=== PATIENT | male | born 1985 | race Caucasian/White ===

== ENCOUNTER 2018-04-18 01:58 | Emergency (ER) | payer OTHER ==
[~2018-04-18] VITALS: Ht 185.4 cm; Wt 127.0 kg
[2018-04-18 02:01] VITALS: TEMP 36.7; Ht 185.4 cm; Wt 127.0 kg
[2018-04-18] MEDS ORDERED: ONDANSETRON INJ 2 MG/ML 2 ML VIAL IV STA (02:15)
[2018-04-18] MEDS ORDERED: KETOROLAC TROMETHAMINE 30 MG/ML VIAL IV STA (02:15)
[2018-04-18] MEDS ORDERED: SODIUM CHLORIDE 0.9% 1000ML 1,000 ML IV STA (02:15)
[2018-04-18 02:22] VITALS: O2SAT 100
[2018-04-18 02:29] LABS: BASO % 0.5 %; BASO ABS # 0.03 K/uL (0-0.2); EOS % 4.7 %; EOS ABS # 0.31 K/uL (0-0.5); HEMATOCRIT 36.7 % (42-52); HEMOGLOBIN 12.5 g/dL (14.0-18.0); IG# 0.01 K/uL (0.00-0.02); LYMPH % 48.6 %; LYMPH ABS # 3.19 K/uL (1.2-3.4); MEAN CELL VOLUME 91.8 fL (80-100); MEAN CORPUSCULAR HEMOGLOBIN 31.3 pg (25-34); MEAN CORPUSCULAR HGB CONC 34.1 g/dl (32-36); MEAN PLATELET VOLUME 9.5 fL (7.4-10.4); MONO % 6.5 %; MONO ABS # 0.43 K/uL (0.11-0.59); NEUT % 39.5 %; PLATELET COUNT 222 K/uL (130-400); RED CELL DISTRIBUTION WIDTH CV 13.7 % (11.5-14.5); RED CELL DISTRIBUTION WIDTH SD 46.1 fL (36.4-46.3); WHITE BLOOD COUNT 6.57 K/uL (4.8-10.8)
[2018-04-18] MEDS ORDERED: OPTIRAY 320 IV PRN (02:30)
[2018-04-18 02:51] LABS: ALBUMIN 3.9 gm/dl (3.4-5.0); ALKALINE PHOSPHATASE 69 U/L (45-117); ALT/SGPT 25 U/L (12-78); AST/SGOT 23 U/L (15-37); BLOOD UREA NITROGEN 10 mg/dl (7-18); CALCIUM 8.1 mg/dl (8.5-10.1); CARBON DIOXIDE 27 mmol/L (21-32); CREATININE 0.98 mg/dl (0.60-1.40); GLUCOSE 98 mg/dl (70-99); LIPASE 152 U/L (73-393); POTASSIUM 3.7 mmol/L (3.5-5.1); SODIUM 141 mmol/L (136-145); TOTAL PROTEIN 7.5 gm/dl (6.4-8.2)
--- NOTE | 2018-04-18 04:06 | EMERGENCY ROOM VISIT NOTE ---
History First contact with patient: 02:07 Chief Complaint: ABDOMINAL PAIN Stated Complaint: ABD PAIN History of Present Illness The patient is a 33 year old male who presents to the Emergency Room with complaints of severe sudden onset of right lower quadrant pain with nausea and vomiting for the past hour. Patient states throughout the day he thought his abdomen felt uncomfortable. He was able to eat and drink though. Patient states he was on lock down today. He did not leave his cell. Patient described pain as severe, 9 out of 10. Nothing makes it better or worse. It does not radiate. Patient denies chest pain, dyspnea, injury to the area, back pain, urinary symptoms, testicular pain, penile pain, diarrhea or any other medical complaints. He states he takes no medicines and has no active medical problems. Review of Systems An 10 system review of systems was completed with positives and pertinent negatives listed in the HPI. Past Medical/Surgical History None Social History Smoking Status: Current Every Day Smoker Marital Status: single Occupation Status: other (Prisoner) Current/Historical Medications No Active Prescriptions or Reported Meds Physical Exam Vital Signs Date Time Temp Pulse Resp B/P (MAP) Pulse Ox O2 Delivery O2 Flow Rate FiO2 04/18/18 03:48 58 19 156/88 96 Room Air 04/18/18 03:43 65 14 04/18/18 03:38 60 21 04/18/18 03:33 63 15 04/18/18 03:28 62 15 04/18/18 03:23 71 15 04/18/18 03:23 65 04/18/18 02:22 100 Room Air 04/18/18 02:21 153/88 04/18/18 02:01 36.7 54 18 153/88 98 Room Air Physical Exam VITALS: Vitals are noted on the nurse's note and reviewed by myself. Vital signs stable. GENERAL: White male with multiple tattoos in shackles, in no acute distress, nondiaphoretic, well-developed well-nourished. SKIN: The skin was without rashes, erythema, edema, or bruising. There is no tenting of the skin. Capillary reflex less than 2 seconds. HEAD: Normocephalic atraumatic. EARS: External auditory canals clear, tympanic membranes pearly olmos without erythema or effusion bilaterally. EYES: Pupils equal round and reactive to light and accommodation. Conjunctivae without injection, sclerae without icterus. Extraocular movements intact. NOSE: Patent, turbinates without inflammation or discharge. MOUTH: Mucous membranes moist. Pharynx without erythema or exudate. Uvula midline. Airway patent. Tongue does not deviate. NECK: Supple without nuchal rigidity. No lymphadenopathy. No thyromegaly. Cervical spine is nontender. No JVD. HEART: Regular rate and rhythm without murmurs gallops or rubs. LUNGS: Clear to auscultation bilaterally without wheezes, rales or rhonchi. No retractions or accessory muscle use. ABDOMEN: Positive bowel sounds x 4. Normal tympanic percussion. Soft, tender to palpation right lower quadrant, without masses or organomegaly. Hummel sign negative. No guarding or rebound tenderness. No CVA tenderness MUSCULOSKELETAL: No muscle atrophy, erythema, or edema noted. NEURO: Patient was alert and oriented to person place and time. Normal sensation to light and sharp touch. No focal neurological deficits. Medical Decision & Procedures Laboratory Results 04/18/18 02:20 Red Blood Count 4.00, Mean Corpuscular Volume 91.8, Mean Corpuscular Hemoglobin 31.3, Mean Corpuscular Hemoglobin Concent 34.1, Mean Platelet Volume 9.5, Neutrophils (%) (Auto) 39.5, Lymphocytes (%) (Auto) 48.6, Monocytes (%) (Auto) 6.5, Eosinophils (%) (Auto) 4.7, Basophils (%) (Auto) 0.5, Neutrophils # (Auto) 2.60, Lymphocytes # (Auto) 3.19, Monocytes # (Auto) 0.43, Eosinophils # (Auto) 0.31, Basophils # (Auto) 0.03 04/18/18 02:20 Test 04/18/18 02:17 04/18/18 02:20 Urine Color YELLOW Urine Appearance CLEAR (CLEAR) Urine pH 6.0 (4.5-7.5) Urine Specific [place] 1.024 (1.000-1.030) Urine Protein 1+ (NEG) Urine Glucose (UA) NEG (NEG) Urine Ketones NEG (NEG) Urine Occult Blood 3+ (NEG) Urine Nitrite NEG (NEG) Urine Bilirubin NEG (NEG) Urine Urobilinogen NEG (NEG) Urine Leukocyte Esterase NEG (NEG) Urine WBC (Auto) 1-5 /hpf (0-5) Urine RBC (Auto) >30 /hpf (0-4) Urine Hyaline Casts (Auto) 0 /lpf (0-5) Urine Epithelial Cells (Auto) 5-10 /lpf (0-5) Urine Bacteria (Auto) NEG (NEG) White Blood Count 6.57 K/uL (4.8-10.8) Red Blood Count 4.00 M/uL (4.7-6.1) Hemoglobin 12.5 g/dL (14.0-18.0) Hematocrit 36.7 % (42-52) Mean Corpuscular Volume 91.8 fL (80-100) Mean Corpuscular Hemoglobin 31.3 pg (25-34) Mean Corpuscular Hemoglobin Concent 34.1 g/dl (32-36) Platelet Count 222 K/uL (130-400) Mean Platelet Volume 9.5 fL (7.4-10.4) Neutrophils (%) (Auto) 39.5 % Lymphocytes (%) (Auto) 48.6 % Monocytes (%) (Auto) 6.5 % Eosinophils (%) (Auto) 4.7 % Basophils (%) (Auto) 0.5 % Neutrophils # (Auto) 2.60 K/uL (1.4-6.5) Lymphocytes # (Auto) 3.19 K/uL (1.2-3.4) Monocytes # (Auto) 0.43 K/uL (0.11-0.59) Eosinophils # (Auto) 0.31 K/uL (0-0.5) Basophils # (Auto) 0.03 K/uL (0-0.2) RDW Standard Deviation 46.1 fL (36.4-46.3) RDW Coefficient of Variation 13.7 % (11.5-14.5) Immature Granulocyte % (Auto) 0.2 % Immature Granulocyte # (Auto) 0.01 K/uL (0.00-0.02) Anion Gap 4.0 mmol/L (3-11) Est Creatinine Clear Calc Drug Dose 149.7 ml/min Estimated GFR () 116.9 Estimated GFR (Non- 100.9 BUN/Creatinine Ratio 10.2 (10-20) Calcium Level 8.1 mg/dl (8.5-10.1) Total Bilirubin 0.2 mg/dl (0.2-1) Direct Bilirubin < 0.1 mg/dl (0-0.2) Aspartate Amino Transf (AST/SGOT) 23 U/L (15-37) Alanine Aminotransferase (ALT/SGPT) 25 U/L (12-78) Alkaline Phosphatase 69 U/L (45-117) Total Protein 7.5 gm/dl (6.4-8.2) Albumin 3.9 gm/dl (3.4-5.0) Lipase 152 U/L (73-393) Medications Administered Medications (Trade) Dose Ordered Sig/Woody Route Start Time Stop Time Status Last Admin Dose Admin Ketorolac Tromethamine (Toradol Inj) 10 mg NOW STAT IV 04/18/18 02:15 04/18/18 02:17 DC 04/18/18 02:26 10 MG Ondansetron HCl (Zofran Inj) 4 mg NOW STAT IV 04/18/18 02:15 04/18/18 02:17 DC 04/18/18 02:27 4 MG Sodium Chloride 1,000 ml @ 999 mls/hr Q1H1M STAT IV 04/18/18 02:15 04/18/18 03:15 DC 04/18/18 02:28 999 MLS/HR ED Course Prior records/ancillary studies reviewed. Triage Nursing notes reviewed. Additional history obtained from correction officers The patient's history was concerning for abdominal pain. Differential diagnosis: Etiologies such as appendicitis, diverticulitis, PUD, biliary pathology, UTI, pancreatitis, obstruction, mesenteric ischemia, aortic pathology, infections, inflammatory bowel disease, renal colic, as well as others were entertained. Physical examination findings: As above. ER treatment provided: Toradol, Zofran, IV fluids On reassessment the patient felt better. Diagnostics interpreted by me: The labs revealed no worrisome electrolyte abnormality Urine hematuria. No signs of infection. Mild anemia Imaging studies: CT ABDOMEN & PELVIS With Contrast: A 2 mm stone in the bladder near the right UVJ with mild right hydronephrosis. Normal appendix. Mild fluid in small bowel loops, nonspecific, enteritis not excluded in the appropriate clinical setting. No evidence of bowel obstruction. Mild rectosigmoid wall thickening likely related to underdistention. Scattered colonic diverticula. Contracted gallbladder. Small fat-containing umbilical and inguinal hernias. Small nonspecific mesenteric and retroperitoneal lymph nodes. Radiologist: Renata Lacy M.D. Study ready at 03:18 and initial results transmitted at 03:59 Consultation: A consultation was placed with the [facility] nurse. She was informed of the above findings. Exam and history seem consistent with right ureteral colic. Patient was advised to strain his urine. Patient had no signs of UTI. Patient did not have acute abdomen on exam. He is well-appearing. Repeat abdominal exam was benign. Patient was afebrile and nontoxic. No leukocytosis. Patient was advised to take medications as directed rest, stay well-hydrated follow-up nursing home doctor tomorrow here in the ER sooner for severe pain, fevers, vomiting, worsening signs or symptoms or as needed. By the evaluation outlined above emergent etiologies such as appendicitis, diverticulitis, PUD, biliary pathology, UTI, pancreatitis, obstruction, mesenteric ischemia, aortic pathology, infections, inflammatory bowel disease, as well as others were deemed relatively unlikely. The pt informed about the findings as listed above. All questions were answered and pleased with the treatment. Return instructions were outlined and the patient was discharged in stable condition. Referral: The patient was referred back to their primary care physician for follow-up later this morning for a recheck of the current condition. Case reviewed with my attending The chart was completed utilizing [employer] Speech voice recognition software. Grammatical errors, random word insertions, pronoun errors, and incomplete sentences are an occassional consequence of this system due to software limitations, ambient noise, and hardware issues. Any formal questions or concerns about the content, text, or information contained within the body of this dictation should be directly addressed to the physician research program assistant for clarification. Medical Decision As above Medication Reconcilliation Current Medication List: was personally reviewed by ut Blood Pressure Screening Patient's blood pressure: Normal blood pressure Impression Primary Impression: Renal colic on right side Additional Impression: Anemia Departure Information Dispostion Home / Self-Care Condition GOOD Prescriptions No Active Prescriptions or Reported Meds Referrals Cherri DEUTSCH (PCP) Patient Instructions [facility] Additional Instructions Ibuprofen(Motrin, Advil) may be used for fever or pain. Use 600mg every six hours as needed. Take with food. Avoid using more than 2400mg in a 24 hour period. Do not use 2400mg per day for more than three consecutive days without physician direction. Prolonged inappropriate use can lead to stomach upset or ulcers. This medication can be taken if you need to drive, work, or perform activities which may be dangerous when taking narcotic pain medication. (AND/OR) Acetaminophen(Tylenol) may be used for fever or pain. Use 1000mg every six hours as needed. Avoid using more than 3000mg in a 24 hour period. This medication can be taken if you need to drive, work, or perform activities which may be dangerous when taking narcotic pain medication. Strain your urine and collect all the stones or debris for the urologists. Rest and avoid strenuous activity until your stone passes and symptoms resolve. Drink plenty of fluids. Continue current medications. Return to the ER for worsening abdominal or back pain, vomiting, fevers, passing out, or as needed. Follow up with nursing home doctor in the morning and urology in 2-3 days, call for an appointment. Problem Qualifiers
[2018-04-18 04:12] VITALS: BP 156/88; PULSE 58; O2SAT 96
--- NOTE | 2018-04-18 07:46 | DIAGNOSTIC IMAGING REPORT ---
ABDOMEN AND PELVIS CT WITH IV CONTRAST CT DOSE: 988.50 mGy.cm HISTORY: right side pain, ? appy/stone/infx TECHNIQUE: Multiaxial CT images of the abdomen and pelvis were performed following the use of intravenous contrast. A dose lowering technique was utilized adhering to the principles of ALARA. COMPARISON STUDY: None. FINDINGS: The lung bases are clear. No pneumoperitoneum. No pneumatosis. No suspicious lytic or blastic osseous lesions. The liver, gallbladder, adrenal glands, pancreas, and spleen are unremarkable. A 1.3 cm cyst within the lower pole of the left kidney. No retroperitoneal lymphadenopathy. Small fat-containing umbilical hernia. Mild right hydroureteronephrosis secondary to an obstructing 3 mm stone either within or just beyond the right ureterovesical junction. This is best in image 429. No bladder wall thickening. No bowel wall thickening or obstruction. Normal appendix. Colonic diverticulosis. IMPRESSION: 1. Mild right hydroureteronephrosis. This is secondary to a 3 mm stone which is either within or just beyond the right ureterovesical junction. 2. No bowel wall thickening or obstruction. 3. Colonic diverticulosis. Electronically signed by: Jean Carlos Black M.D. 04/18/2018 7:45 AM Dictated Date/Time: 04/18/2018 7:40 AM
--- NOTE | 2018-04-23 10:13 | EDITING REQUIRED CODING QUERY ---
CODING QUERY To promote full compliance with coding requirements relating to patient care, provider participation is requested in all cases of front end web designer uncertainty. Please assist us with the question(s) below: Coding Question(s): Patient was advised to "strain your urine and collect all the stones or debris for the urologist". Please document if the patient has a diagnosis of a renal calculus and location of calculus if present. Physician's Response(s): Renal Calculus on the right side Thank you Shweta Magana Principal Diagnosis: "_that condition established after study, to be chiefly responsible for occasioning the admission of the patient to the hospital for care." Co-Existing Principal Diagnosis: "_when two or more diagnoses equally meet the criteria for principal diagnosis as determined by the circumstances of admission, diagnostic work up, and/or therapy provided, and the Alphabetic Index, Tabular List, or another coding guideline does not provide sequencing direction, any one of the diagnoses may be sequenced first." "When the physician has documented what appears to be a current diagnosis in the body of the record, but has not included the diagnosis in the final diagnostic statement, the physician should be asked whether the diagnosis should be added." (Source [facility] 2 QTR90. p3-4)
== END 2018-04-18 04:14 | disposition home or self-care (01) ==
LOC: C.EDB 02:02 → C.EDA 04:14
DX: N20.0 Calculus of kidney (principal); D64.9 Anemia, unspecified; F17.200 Nicotine dependence, unspecified, uncomplicated